=== PATIENT | male | born 1940 | race Caucasian/White ===

== ENCOUNTER 2018-01-15 10:35 | Outpatient (CLI) | END 2018-01-15 10:36 | disposition home or self-care (01) | LOC: FCC-LAB 10:35 | PROVIDERS: ATTEND Family Medicine | DX: Z00.00 Encounter for general adult medical examination without abnormal findings (principal) | CPT/HCPCS: 36415; 80053; 80061; 82607; 82746; 83690; 84443; 85025 ==